=== PATIENT | male | born 1985 | race Caucasian/White ===

== ENCOUNTER 2018-04-05 12:36 | Emergency (ER) | payer OTHER, MEDICAID ==
[2018-04-05] MEDS ORDERED: DIPHENHYDRAMINE HCL 50 MG/ML VIAL IV ONE (13:02)
[2018-04-05] MEDS ORDERED: PROCHLORPERAZINE EDISYLATE INJ 10 MG/2 ML VIAL IV ONE (13:02)
--- NOTE | 2018-04-05 13:07 | ER Document Report ---
ED Headache - General Chief Complaint: Headache Stated Complaint: HEADACHE Time Seen by Provider: 04/05/18 12:49 Mode of Arrival: Ambulatory Information source: Patient Notes: Patient presents complaining of a 5 day history of intermittent headache on the left side of his head. Patient states that it feels as though something is trying to push out within his brain. Patient denies any head injury, fever, nausea or vomiting. Patient states that he has not taken anything to treat the headache today. Patient states sometimes the pain would just resolve but then would come right back. Patient reports a family history significant for an uncle passing away in his 30s from an aneurysm. TRAVEL OUTSIDE OF THE [place] IN LAST 30 DAYS: No - HPI Patient complains to provider of: Headache Onset: Other - 5 days Onset was: Gradual. denies: [place] Timing: Still present Quality of pain: Achy Pain Level: 4 Associated symptoms: denies: Dizzy, Fainting, Fever, Nausea/vomiting, Neck pain , Photophobia, Speech problems, Stiff neck, Trouble walking Exacerbated by: denies: Light, Noise Similar symptoms previously: No Recently seen / treated by doctor: No - Related Data Allergies/Adverse Reactions: No Known Allergies Allergy (Verified 04/05/18 12:57) Past Medical History - General Information source: Patient - Social History Smoking Status: Current Every Day Smoker Smoking Education Provided: Yes Frequency of alcohol use: Occasional Drug Abuse: None Occupation: [employer] Family History: Reviewed & Not Pertinent - Medical History Medical History: Negative Surgical Hx: Negative - Immunizations Hx Diphtheria, Pertussis, Tetanus Vaccination: Yes Review of Systems - Review of Systems Constitutional: No symptoms reported. denies: Fever, Recent illness EENT: No symptoms reported Cardiovascular: No symptoms reported. denies: Chest pain Respiratory: No symptoms reported. denies: Cough, Short of breath Gastrointestinal: No symptoms reported. denies: Nausea, Vomiting Genitourinary: No symptoms reported Male Genitourinary: No symptoms reported Musculoskeletal: No symptoms reported. denies: Back pain, Neck pain Skin: No symptoms reported. denies: Rash Hematologic/Lymphatic: No symptoms reported Neurological/Psychological: Headaches. denies: Confusion, Weakness, Numbness Physical Exam - Vital signs Vitals: Temp Pulse Resp BP Pulse Ox 99.3 F 88 18 140/77 H 96 04/05/18 12:42 04/05/18 12:42 04/05/18 12:42 04/05/18 12:42 04/05/18 12:42 - General General appearance: Appears well, Alert In distress: None - HEENT Head: Normocephalic, Atraumatic Eyes: Normal Conjunctiva: Normal Extraocular movements intact: Yes Eyelashes: Normal Pupils: PERRL Ears: Normal External canal: Normal Nasal: Normal Mouth/Lips: Normal Mucous membranes: Normal Neck: Normal, Supple. No: Lymphadenopathy, Meningismus - Respiratory Respiratory status: No respiratory distress Chest status: Nontender Breath sounds: Normal. No: Rales, Rhonchi, Stridor, Wheezing Chest palpation: Normal - Cardiovascular Rhythm: Regular Heart sounds: S1 appreciated, S2 appreciated Murmur: No - Back Back: Normal, Nontender. No: Vertebra tenderness - Extremities General upper extremity: Normal inspection, Nontender, Normal ROM General lower extremity: Normal inspection, Nontender, Normal ROM - Neurological Neuro grossly intact: Yes Cognition: Normal [place] Coma Scale Eye Opening: Spontaneous [place] Coma Scale Verbal: Oriented [place] Coma Scale Motor: Obeys Commands Stacy Coma Scale Total: 15 Speech: Normal Cranial nerves: Normal Motor strength normal: LUE, RUE, LLE, RLE - Psychological Associated symptoms: Normal affect, Normal mood - Skin Skin Temperature: Warm Skin Moisture: Dry Skin Color: Normal Course - Re-evaluation Re-evalutation: 04/05/18 13:[address] Bartlett who advises MRI imaging to evaluate [place] as well as for any potential bridge. Consulted with medical office technician who states that the proper way to order study would be an MRI MRA of the brain without contrast. 04/05/18 15:[address] Mullins regarding patient's MRI report, discussed patient's history and symptoms. Does not see any acute findings concerning for aneurysm. Patient reports that headache pain is improved although not completely resolved. Additional medications ordered. 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 The patient is neurologically intact. Given the extremely low risk of these diagnoses further testing and evaluation for these possibilities does not appear to be indicated at this time. The patient has been instructed to return if the symptoms worsen or change in any way. - Vital Signs Vital signs: Temp Pulse Resp BP Pulse Ox 97.6 F 74 18 133/78 H 100 05/31/18 15:41 04/05/18 15:41 04/05/18 12:42 04/05/18 15:41 04/05/18 15:41 - Diagnostic Test Radiology reviewed: Reports reviewed Discharge - Discharge Clinical Impression: Headache Qualifiers: Headache type: unspecified Headache chronicity pattern: unspecified pattern Intractability: not intractable Qualified Code(s): R51 - Headache Shoulder pain Qualifiers: Chronicity: acute Laterality: right Qualified Code(s): M25.511 - Pain in right shoulder Condition: Stable Disposition: HOME, SELF-CARE Instructions: Intravenous Compazine for Headaches ([facility]), Use of Diphenhydramine , Headache ([facility]), Shoulder Injury ([facility]), Toradol Injection ([facility]) Additional Instructions: Return immediately for any new or worsening symptoms Followup with your primary care provider, call tomorrow to make a followup appointment Wear sling while awake only for the next 4 days and then remove. If still having pain follow-up with orthopedics for further evaluation. Prescriptions: Butalb/Acetaminophen/Caffeine [Fioricet (50-325-40 mg) Tablet] 1 - 2 tab PO Q4H PRN #10 each PRN Reason: Naproxen [Naprosyn 250 Nmg Tablet] 1 tab PO BID #14 tablet Forms: Smoking Cessation Education, Return to Work Referrals: [facility] [Provider Group] - Follow up as needed [facility] [Provider Group] - Follow up as needed COLT WHELAN MD [Primary Care Provider] - Follow up tomorrow
--- NOTE | 2018-04-05 14:31 | RADIOLOGY REPORT (SQ) ---
EXAM DESCRIPTION: SHOULDER RIGHT 2 OR MORE VIEWS COMPLETED DATE/TIME: 04/05/2018 2:15 pm REASON FOR STUDY: r shoulder pain COMPARISON: None. NUMBER OF VIEWS: Three views. TECHNIQUE: Internal rotation, external rotation, and Y view images acquired of the right shoulder. LIMITATIONS: None. FINDINGS: MINERALIZATION: Normal. BONES: There appears to be an old fracture of the clavicle. No acute fracture or dislocation is seen in the shoulder. JOINTS: No dislocation. VISUALIZED LUNGS AND RIBS: No pneumothorax. No rib fracture. SOFT TISSUES: No radiopaque foreign body. OTHER: No other significant finding. IMPRESSION: Negative study of the right shoulder. There is what appears to be an old fracture of th e clavicle. Correlate clinically. TECHNICAL DOCUMENTATION: JOB ID: [id number] [employer]- All Rights Reserved Reading location - IP/workstation name: [email or web address]
[2018-04-05] MEDS ORDERED: KETOROLAC TROMETHAMINE INJ/PF 30 MG/1 ML SDV IV ONE (15:22)
[2018-04-05] MEDS ORDERED: DEXAMETHASONE SOD PHOS INJ 10 MG/1 ML VIAL IV ONE (15:22)
--- NOTE | 2018-04-05 15:30 | RADIOLOGY REPORT (SQ) ---
EXAM DESCRIPTION: MRI HEAD WITHOUT; MRA HEAD WITHOUT COMPLETED DATE/TIME: 04/05/2018 3:13 pm REASON FOR STUDY: NAJERA, fam hx aneurysm COMPARISON: None. TECHNIQUE: Multiplanar imaging includes non-contrasted T1, T2, FLAIR, and diffusion with ADC map seq uences. Images stored on PACS. [place] MRA exam was performed with 3D [id number] acquisition, source data and maximum i ntensity projected images were reviewed. LIMITATIONS: None. FINDINGS: ANATOMY: No developmental anomalies. Normal vascular flow voids. Pituitary fossa normal. CSF SPACES: Normal in size and contour. No hemorrhage. CEREBRUM: Sulci and gyri normal in size and contour. Normal white matter signal on FLAIR imaging. No evidence of hemorrhage, mass, or extraaxial fluid collection. POSTERIOR FOSSA: No signal alteration. No hemorrhage. No edema, masses or mass effect. Internal mikhail tory canals, cerebello-pontine angles, mastoids normal. DIFFUSION IMAGING: Negative for acute or sub-acute infarction. ORBITS: No masses. Globes normal. PARANASAL SINUSES: No fluid levels. Mucosa normal. [place] MRA: No [place] of [place] stenosis, vascular malformation, or aneurysm. IMPRESSION: NORMAL MRI OF THE BRAIN WITHOUT INTRAVENOUS GADOLINIUM CONTRAST. UNREMARKABLE [place] MRA EVIDENCE OF ACUTE STROKE: NO. COMMENT: Report discussed with Fariba Bojorquez in the emergency room. TECHNICAL DOCUMENTATION: JOB ID: [id number] [employer]- All Rights Reserved Reading location - IP/workstation name: [email or web address]
--- NOTE | 2018-04-05 15:30 | RADIOLOGY REPORT (SQ) ---
EXAM DESCRIPTION: MRI HEAD WITHOUT; MRA HEAD WITHOUT COMPLETED DATE/TIME: 04/05/2018 3:13 pm REASON FOR STUDY: NAJERA, fam hx aneurysm COMPARISON: None. TECHNIQUE: Multiplanar imaging includes non-contrasted T1, T2, FLAIR, and diffusion with ADC map seq uences. Images stored on PACS. [place] of [place] MRA exam was performed with 3D [id number] acquisition, source data and maximum i ntensity projected images were reviewed. LIMITATIONS: None. FINDINGS: ANATOMY: No developmental anomalies. Normal vascular flow voids. Pituitary fossa normal. CSF SPACES: Normal in size and contour. No hemorrhage. CEREBRUM: Sulci and gyri normal in size and contour. Normal white matter signal on FLAIR imaging. No evidence of hemorrhage, mass, or extraaxial fluid collection. POSTERIOR FOSSA: No signal alteration. No hemorrhage. No edema, masses or mass effect. Internal mikhail tory canals, cerebello-pontine angles, mastoids normal. DIFFUSION IMAGING: Negative for acute or sub-acute infarction. ORBITS: No masses. Globes normal. PARANASAL SINUSES: No fluid levels. Mucosa normal. [place] MRA: No [place] of [place] stenosis, vascular malformation, or aneurysm. IMPRESSION: NORMAL MRI OF THE BRAIN WITHOUT INTRAVENOUS GADOLINIUM CONTRAST. UNREMARKABLE [place] MRA EVIDENCE OF ACUTE STROKE: NO. COMMENT: Report discussed with Fariba Bojorquez in the emergency room. TECHNICAL DOCUMENTATION: JOB ID: [id number] [employer]- All Rights Reserved Reading location - IP/workstation name: [email or web address]
[2018-04-05 15:48] VITALS: BP 133/78
== END 2018-04-05 15:50 | disposition home or self-care (01) ==
LOC: ER 12:36
DX: R51 Headache (principal); M25.511 Pain in right shoulder; F17.200 Nicotine dependence, unspecified, uncomplicated; Z82.49 Family history of ischemic heart disease and other diseases of the circulatory system
CPT/HCPCS: 99284; 96374; 96375; 70551; 70544; 73030; J1200; J1885; J0780; J1100

== ENCOUNTER 2018-10-24 13:33 | Emergency (ER) | payer OTHER ==
[2018-10-24 14:00] VITALS: BP 134/85
--- NOTE | 2018-10-24 14:29 | ER Document Report ---
ED Animal Bite - General Chief Complaint: Dog Bite Stated Complaint: POSSIBLE DOG BITE Time Seen by Provider: 10/24/18 14:09 Information source: Patient Notes: Patient is a well-nourished well-developed 33-year-old male comes emergency room today because of a dog bite. Patient states about 1030 this morning he was walking to a friend's house while 2 dogs ran up to him and he thought were playing with him for a few minutes after about 5 minutes he turned to continue to walk 1 dog grabbed him in the posterior right thigh near the buttocks and the second 1 got him in the calf on the lateral side of the left leg. Both of them have puncture wounds but no ripping kind of wounds. They were to stop bleeding. Patient originally went to the [place] where he received a tetanus shot and was given instructions and orders to come to [facility] for further evaluation and treatment. Patient tells me that the dogs are owned and the ulnar was involved as well as animal control was on site. The status of the do g's vaccinations was not known by patient when he came to the hospital. But the animals are confined and are owned they are not strays. TRAVEL OUTSIDE OF THE [place] IN LAST 30 DAYS: No - HPI Severity of injury: Bitten Onset: This morning Quality of pain: Achy Pain Level: 2 Severity: Mild Context of attack: "Unprovoked" attack, Entered animal's domain Summary of what happened: See HPI above Type of animal: Dog Appearance of animal: Appeared well Breed and color: Unknown Animal's name or other identification: Unknown Animal's immunizations: Unknown Animal captured or known: Yes Animal control notified: Yes Animal control form completed: Yes Notes: Animal control was on scene and talking to both the ulnar and the dog as well as to the patient paperwork filled out on site as far as I know - Related Data Allergies/Adverse Reactions: No Known Allergies Allergy (Verified 10/24/18 13:35) Past Medical History - General Information source: Patient, Outside Facility Records - Social History Smoking Status: Current Every Day Smoker Cigarette use (# per day): Yes Chew tobacco use (# tins/day): No Smoking Education Provided: No Frequency of alcohol use: None Drug Abuse: None Lives with: Family Family History: Reviewed & Not Pertinent Renal/ Medical History: Denies: Hx Peritoneal Dialysis - Immunizations Hx Diphtheria, Pertussis, Tetanus Vaccination: Yes Review of Systems - Review of Systems Constitutional: No symptoms reported EENT: No symptoms reported Cardiovascular: No symptoms reported Respiratory: No symptoms reported Gastrointestinal: No symptoms reported Genitourinary: No symptoms reported Male Genitourinary: No symptoms reported Musculoskeletal: No symptoms reported Skin: No symptoms reported, Other - Puncture wounds from dog bite Hematologic/Lymphatic: No symptoms reported Neurological/Psychological: No symptoms reported Physical Exam - Vital signs Vitals: Temp Pulse Resp BP Pulse Ox 98.2 F 78 16 134/85 H 97 10/24/18 13:59 10/24/18 13:59 10/24/18 13:59 10/24/18 13:59 10/24/18 13:59 Interpretation: Hypertensive - Notes Notes: PHYSICAL EXAMINATION: GENERAL: Patient is a well-nourished well-developed 33-year-old male who is in no apparent distress on physical examination today. HEAD: Atraumatic, normocephalic. LUNGS: Breath sounds clear to auscultation bilaterally and equal. No wheezes rales or rhonchi. HEART: Regular rate and rhythm without murmurs Musculoskeletal: Examination patient's areas of concern are his left gastrocnemius/calf. On the lateral side of this area patient sustained a upper and lower puncture wound soler from the dog bite. The wounds themselves are closed no bleeding currently. There is no ecchymosis around the site as of yet. There is no sign of infection at this point. Very tender to touch. The second location is his right posterior upper thigh there are 3 puncture soler in this location here to appear to be the canine teeth and the third would be the bottom portion of that. All of these areas are also clean wounds are not bleeding and there is no other sign of ecchymosis there is some mild abrasion from minor teeth but not puncture wounds. The area is also tender to touch. And again wounds are not bleeding. NEUROLOGICAL: Normal speech, normal gait. Normal sensory, motor exams PSYCH: Normal mood, normal affect. SKIN: Warm, Dry, for further description see musculoskeletal above. Course - Re-evaluation Re-evalutation: 10/24/18 14:39 As originally stated in HPI [facility] update animal control was contacted on site and paperwork done there. The animals are confined in the ulnar is aware to keep them local. At this point I do not believe patient needs any type of rabies vaccination. We will once again re-cleaning his wounds and dressed them we will place him on Augmentin 875 twice daily for 10 days. I instructed patient to monitor these closely informed him they will probably turn black and blue over the course the next few days and that will turn into a yellowish color however if they are getting infected which would mean more reddish warm type of a presentation is to return to ER for reevaluation. I have informed him that his essential that he take all the antibiotics. I have informed him to take it with food. If he has any troubles or had a reaction to the medication to return to ER as well. - Vital Signs Vital signs: Temp Pulse Resp BP Pulse Ox 98.2 F 78 16 134/85 H 97 10/24/18 13:59 10/24/18 13:59 10/24/18 13:59 10/24/18 13:59 10/24/18 13:59 Discharge - Discharge Clinical Impression: Dog bite of calf Qualifiers: Encounter type: initial encounter Laterality: left Qualified Code(s): S81.852A - Open bite, left lower leg, initial encounter; W54.0XXA - Bitten by dog, initial encounter Dog bite of right thigh Qualifiers: Encounter type: initial encounter Qualified Code(s): S71.151A - Open bite, right thigh, initial encounter; W54.0XXA - Bitten by dog, initial encounter Condition: Stable Disposition: HOME, SELF-CARE Instructions: Animal Bites ([facility]) Additional Instructions: As we discussed these dog bites or puncture wounds and therefore we leave them open and let them drain if they need to. They will heal from the inside out. Keep them clean washing with warm soapy water and then let him air dry for the next couple of days you may apply an antibiotic cream and a nonstick dressing to it after that you may start leaving them open. It is essential that you take all of the antibiotics and suggest to be taken with food so you do not have an upset stomach. If for a chance that you have a reaction to the medication it is essential to come back to the ER for reevaluation. Likewise if the area starts to turn red and warm and it appears that you may think it looks like it is infected come back to ER sooner than later. Should you have any other concerns please return to ER for recheck. Prescriptions: Amox Tr/Potassium Clavulanate [Augmentin 875-125 Tablet] 1 tab PO BID 10 Days #20 tablet Forms: Elevated Blood Pressure Referrals: COLT WHELAN MD [NO LOCAL MD] - Follow up as needed
== END 2018-10-24 15:03 | disposition home or self-care (01) ==
LOC: ER 13:33
DX: S71.151A Open bite, right thigh, initial encounter (principal); S81.852A Open bite, left lower leg, initial encounter; W54.0XXA Bitten by dog, initial encounter; Y93.01 Activity, walking, marching and hiking; F17.210 Nicotine dependence, cigarettes, uncomplicated
CPT/HCPCS: 99283

== ENCOUNTER 2019-05-30 14:17 | Emergency (ER) | payer OTHER ==
[2019-05-30] MEDS ORDERED: HYDROCODONE/ACETAMINOPHEN 10-325 MG TABLET PO ONE (15:47)
--- NOTE | 2019-05-30 15:48 | ER Document Report ---
ED Medical Screen (RME) - General Chief Complaint: Laceration Stated Complaint: FINGER LACERATION Time Seen by Provider: 05/30/19 15:42 Notes: Patient is a 34-year-old male presents to the emergency department with 2 lacerations to his right index and middle finger. States he was attempting to lift the blade from his lawnmower when he accidentally cut his fingers. Patient states he has had a tetanus immunization in the last 5 years. GENERAL: Alert, interacts well. No acute distress. SKIN: Warm, dry, normal turgor. Lacerations noted to the pads of patient's right index and middle finger. Bleeding controlled. I have greeted and performed a rapid initial assessment of this patient. A comprehensive ED assessment and evaluation of the patient, analysis of test results and completion of the medical decision making process will be conducted by additional ED providers. I have specifically instructed the patient or family members with the patient to immediately return to any nursing staff should anything change in the patient's condition or with their chief complaint. This medical record was dictated with voice recognizing software. There may be grammatical, syntax errors that are unintended. TRAVEL OUTSIDE OF THE [place] IN LAST 30 DAYS: No - Related Data Allergies/Adverse Reactions: No Known Allergies Allergy (Verified 10/24/18 13:35) Past Medical History - Social History Chew tobacco use (# tins/day): No Frequency of alcohol use: Occasional Drug Abuse: None Renal/ Medical History: Denies: Hx Peritoneal Dialysis Psychiatric Medical History: Reports: Hx Depression Past Surgical History: Reports: Hx Oral Surgery - Immunizations Hx Diphtheria, Pertussis, Tetanus Vaccination: Yes Physical Exam - Vital signs Vitals: Pulse Resp BP Pulse Ox 65 20 110/59 L 99 05/30/19 14:25 05/30/19 14:25 05/30/19 14:25 05/30/19 14:25 Course - Vital Signs Vital signs: Temp Pulse Resp BP Pulse Ox 65 20 110/59 L 99 05/30/19 14:25 05/30/19 14:25 05/30/19 14:25 05/30/19 14:25
--- NOTE | 2019-05-30 16:56 | ER Document Report ---
ED General - General Chief Complaint: Laceration Stated Complaint: FINGER LACERATION Time Seen by Provider: 05/30/19 15:42 Primary Care Provider: KWESI,SIMEON [Primary Care Provider] - Follow up as needed TRAVEL OUTSIDE OF THE [place] IN LAST 30 DAYS: No - HPI Notes: 34 year old male to the ED with C/O lacerations to his right index and middle finger that occurred just [employer]. States that he was mowning the lawn and went to adjust the mower when he cut his fingers. He states he is UTD on his tetanus immunizations. States that he is right hand dominant. Denies any other injuries. - Related Data Allergies/Adverse Reactions: No Known Allergies Allergy (Verified 10/24/18 13:35) Past Medical History - General Information source: Patient - Social History Smoking Status: Current Every Day Smoker Chew tobacco use (# tins/day): No Frequency of alcohol use: Occasional Drug Abuse: None Family History: Reviewed & Not Pertinent Patient has suicidal ideation: No Patient has homicidal ideation: No Renal/ Medical History: Denies: Hx Peritoneal Dialysis Psychiatric Medical History: Reports: Hx Depression Past Surgical History: Reports: Hx Oral Surgery - Immunizations Hx Diphtheria, Pertussis, Tetanus Vaccination: Yes Review of Systems - Review of Systems Constitutional: denies: Chills, Fever EENT: No symptoms reported Cardiovascular: denies: Chest pain, Palpitations, Dyspnea, Syncope, Dizziness, Lightheaded Respiratory: denies: Cough, Short of breath Gastrointestinal: denies: Abdominal pain, Diarrhea, Nausea, Vomiting Musculoskeletal: Joint pain - right index and middle finger pain Skin: Other - laceration to the right middle and index finger Hematologic/Lymphatic: No symptoms reported Neurological/Psychological: No symptoms reported -: Yes All other systems reviewed and negative Physical Exam - Vital signs Vitals: Pulse Resp BP Pulse Ox 65 20 110/59 L 99 05/30/19 14:25 05/30/19 14:25 05/30/19 14:25 05/30/19 14:25 - General General appearance: Appears well, Alert - HEENT Head: Normocephalic, Atraumatic Eyes: Normal Pupils: PERRL - Respiratory Respiratory status: No respiratory distress Chest status: Nontender Breath sounds: Normal Chest palpation: Normal - Cardiovascular Rhythm: Regular Heart sounds: Normal auscultation Murmur: No - Extremities Hand: Laceration - to the distal portions of the right index and right middle finger there are lacerations that do not involve the nail. there is a slight soft tissue avulsion to the index finger that cannot be repaired. to the Wounds are still oozing blood. Patient has FROM in all fingers against resistance with 5/5 strength in flexion and extension. no tendon laceration, no FB. Cap refill is less than 2 sec bilaterally. - Neurological Neuro grossly intact: Yes Cognition: Normal Orientation: AAOx4 [place] Coma Scale Eye Opening: Spontaneous [place] Coma Scale Verbal: Oriented [place] Coma Scale Motor: Obeys Commands [place] Coma Scale Total: 15 Speech: Normal Motor strength normal: LUE, RUE, LLE, RLE Sensory: Normal - Psychological Associated symptoms: Normal affect, Normal mood - Skin Skin Temperature: Warm Skin Moisture: Dry Skin Color: Normal Skin irregularity: Laceration - see MS for further discussion of lacerations to fingers Course - Re-evaluation Re-evalutation: Impression: Finger lacerations to the right middle and index finger. Patient tolerated repair well. Finger splints were applied to both fingers by PCT. Splint check reveals patient is neurovascularly intact. He retains his FROM. There is not evidence of tendon laceration. UTD on Tetanus. Suture removal in 10 days. 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 patient agrees with the plan. - Vital Signs Vital signs: Temp Pulse Resp BP Pulse Ox 98.0 F 59 L 18 113/67 98 05/30/19 18:52 05/30/19 18:52 05/30/19 18:52 05/30/19 18:52 05/30/19 18:52 Procedures - Laceration/Wound Repair Right Distal Finger 2nd digit Wound length (cm): 3 Wound's Depth, Shape: Superficial Laceration pre-procedure: Sterile PPE donned, Sterile drapes applied, Shur-Clens applied Anesthetic type: 1% Lidocaine Volume Anesthetic (mLs): 5 Wound explored: No foreign body removed, Contaminated Irrigated w/ Saline (mLs): 200 Wound Debrided: Minimal Wound Repaired With: Sutures Suture Size/Type: 4:0 Number of Sutures: 5 Layer Closure?: No Post-procedure wound care: Sterile dressing applied, Splint applied - finger splint applied Post-procedure NV exam normal: Yes Complications: No Right Distal Finger 3rd digit Wound length (cm): 3.5 Wound's Depth, Shape: Superficial Laceration pre-procedure: Sterile PPE donned, Sterile drapes applied, Shur-Clens applied Anesthetic type: 1% Lidocaine Volume Anesthetic (mLs): 5 Wound explored: No foreign body removed, Contaminated Irrigated w/ Saline (mLs): 200 Wound Debrided: Minimal Wound Repaired With: Sutures Suture Size/Type: 4:0 Number of Sutures: 5 Layer Closure?: No Post-procedure wound care: Sterile dressing applied, Splint applied Post-procedure NV exam normal: Yes Discharge - Discharge Clinical Impression: Laceration of index finger of right hand without complication Laceration of middle finger of right hand without complication Qualifiers: Encounter type: initial encounter Qualified Code(s): S61.212A - Laceration without foreign body of right middle finger without damage to nail, initial encounter Condition: Stable Disposition: HOME, SELF-CARE Additional Instructions: COMPLETE ALL ANTIBIOTICS. CLEAN WOUNDS DAILY WITH WARM SOAPY WATER. WEAR SPLINT TO PROTECT FINGER AND STITCHES. FOLLOW UP WITH CLINIC BELOW FOR WOUND CHECK IN ONE WEEK. SUTURE REMOVAL IN 10 DAYS. RETURN SOONER IF FEVERS, REDNESS, INCREASED SWELLING, INCREASED PAIN, PUS DRAINING FROM THE FINGERS. Prescriptions: Cephalexin Monohydrate [Keflex 500 mg Capsule] 500 mg PO QID 10 Days #40 capsule Referrals: [facility] [Primary Care Provider] - Follow up as needed
[2019-05-30] MEDS ORDERED: LIDOCAINE 1% INJ-PF (10 MG/ML) 30 ML SDV INJ ONE (17:02)
[2019-05-30] MEDS ORDERED: CEPHALEXIN 500 MG CAPSULE PO ONE (18:19)
[2019-05-30] MEDS ORDERED: HYDROCODONE/ACETAMINOPHEN 5-325 MG (6 TAB/ER DISP) PO PRN (18:20)
[2019-05-30 18:53] VITALS: BP 113/67
== END 2019-05-30 18:53 | disposition home or self-care (01) ==
LOC: ER 14:17
DX: S61.212A Laceration without foreign body of right middle finger without damage to nail, initial encounter (principal); S61.210A Laceration without foreign body of right index finger without damage to nail, initial encounter; W26.8XXA Contact with other sharp object(s), not elsewhere classified, initial encounter; Y93.H2 Activity, gardening and landscaping; Y92.007 Garden or yard of unspecified non-institutional (private) residence as the place of occurrence of the external cause; F17.200 Nicotine dependence, unspecified, uncomplicated
CPT/HCPCS: 99282